=== PATIENT | female | born 1975 ===

== ENCOUNTER 2019-12-20 16:45 | Inpatient (IN) ==
[2019-12-20] MEDS ORDERED: SODIUM CHLORIDE 0.9% 1,000 ML IV STA (17:40)
[2019-12-20 17:43] LABS: Basophils % 0.5 % (0.0-0.8); Eosinophils # 0.1 10*3/uL (0.0-0.87); Eosinophils % 3.1 % (0.00-10.9); Hematocrit 33.7 VOL% (35.7-47.0); Hemoglobin 10.1 GM/DL (12.0-16.0); Immature Granulocytes Absolute 0.04 #; Lymphocytes % 27.3 % (21.3-54.2); Mean Corpuscular Volume 82.8 FL (87-102); Mean Platelet Volume 11.1 FL (9.6-12.0); Monocytes % 8.4 % (1.7-12.7); Neutrophils % 59.7 % (38.7-73.9); Platelet Count 194 T/CUMM (130-400); Red Blood Count 4.07 MC/CUMM (3.8-5.5); Red Cell Distribution Width 22.6 % (9.3-17.3); White Blood Count 3.8 T/CUMM (4-12)
[2019-12-20 17:52] LABS: INR 1.1; PT Patient Result 11.5 SECS (9.8-11.9); Partial Thromboplastin Time 28.2 SECS (23.9-33.8)
[2019-12-20 17:55] LABS: Alanine Aminotransferase 60 U/L (13-56); Albumin 2.7 G/DL (3.4-5.0); Alkaline Phosphatase 102 U/L (45-117); Aspartate Amino Transferase 89 U/L (0-37); Blood Urea Nitrogen 11 MG/DL (7-18); Calcium 8.7 MG/DL (8.5-10.1); Estimated Glom Filtration Rate 91 ML/MIN; Glucose 379 MG/DL (74-106); Osmolality,Calculated 282.2 MOS/KG (273-304); Total Protein 8.5 G/DL (6.4-8.3)
[2019-12-20] MEDS ORDERED: KETOROLAC 30 MG/1 ML VIAL IV STA (18:03)
[2019-12-20] MEDS ORDERED: KETOROLAC 15 MG/1 ML VIAL ONE (18:04)
[2019-12-20 18:30] LABS: Anisocytosis Slight; Hypochromasia Slight; Microcytosis Slight; Polychromasia Few
[2019-12-20 18:31] LABS: Platelet Estimate Adequate
[2019-12-20 18:46] LABS: Apearance,Urine CLEAR (Clear); Bilirubin,Urine Negative (Negative); Blood, Urine Negative (Negative); Glucose,Urine (UA) >=500 mg/dL (Negative); Hyaline Casts,Urine 7 /LPF (0-3); Ketones,Urine Negative (Negative); Mucus,Urine Many /LPF (Occasional); Nitrite,Urine Negative (Negative); Protein,Urine 30 MG/DL; RBC,Urine 1 /HPF (0-4); Squamous Epithelial Cell,Urine Occasional /HPF (0-10); Urine Color Amber (Yellow); Urine Specific Gravity 1.037 (1.001-1.035); WBC,Urine 2 /HPF (0-6)
[2019-12-20] MEDS ORDERED: VANCOMYCIN INJ 1,000 MG in SODIUM CHLORIDE 0.9% 250 ML IV STA (18:54)
[2019-12-20] MEDS ORDERED: PIPERACILLIN/TAZOBACTAM 3,375 MG in SODIUM CHLORIDE 0.9% 100 ML IV STA (18:54)
[2019-12-20] MEDS ORDERED: DEXTROSE 50% 25 GM/50 ML VIAL IV PRN (19:41)
[2019-12-20] MEDS ORDERED: GLUCAGON 1 MG VIAL IM PRN ×2 (19:41)
[2019-12-20] MEDS: INSULIN LISPRO 100 UNIT/ML SUBCUT SCH (21:00)
[2019-12-20] MEDS ORDERED: DEXTROSE 10% 250 ML BAG IV PRN (21:05)
[2019-12-21] MEDS: MORPHINE 4 MG/1 ML VIAL IV PRN ×3 (03:20→21:45)
[2019-12-21] MEDS: SODIUM CHLORIDE 0.9% 1,000 ML IV SCH ×3 (03:25→22:43)
[2019-12-21] MEDS: PIPERACILLIN/TAZOBACTAM 3,375 MG in SODIUM CHLORIDE 0.9% 100 ML IV SCH ×3 (03:25→18:26)
[2019-12-21] MEDS ORDERED: KETAMINE 500 MG/10 ML VIAL ONE (07:30)
[2019-12-21] MEDS ORDERED: DEXMEDETOMIDINE 200 MCG/2 ML VIAL ONE (07:30)
[2019-12-21] MEDS: lisinopriL 5 MG TABLET PO SCH (08:20)
[2019-12-21] MEDS: PANTOPRAZOLE 40 MG TABLET PO SCH (08:20)
[2019-12-21] MEDS: INSULIN LISPRO 100 UNIT/ML SUBCUT SCH ×4 (08:25→22:42)
[2019-12-21] MEDS ORDERED: BUPIVACAINE MPF 0.25% 30 ML VIAL ONE (08:54)
[2019-12-21] MEDS ORDERED: LIDOCAINE 1% 20 ML VIAL ONE (08:54)
[2019-12-21] MEDS: VANCOMYCIN INJ 1,500 MG in SODIUM CHLORIDE 0.9% 500 ML IV SCH ×2 (10:34→21:39)
[2019-12-21 10:48] LABS: Basophils % 0.3 % (0.0-0.8); Eosinophils # 0.1 10*3/uL (0.0-0.87); Eosinophils % 3.6 % (0.00-10.9); Hematocrit 30.3 VOL% (35.7-47.0); Immature Granulocytes % 0.6 %; Immature Granulocytes Absolute 0.02 #; Lymphocytes # 0.9 10*3/uL (1.4-4.0); Lymphocytes % 28.2 % (21.3-54.2); Mean Corpuscular HGB Conc 29.7 GM/DL (32-36); Mean Corpuscular Volume 82.6 FL (87-102); Mean Platelet Volume 11.7 FL (9.6-12.0); Monocytes % 7.1 % (1.7-12.7); Neutrophils % 60.2 % (38.7-73.9); Platelet Count 158 T/CUMM (130-400); Red Blood Count 3.67 MC/CUMM (3.8-5.5); Red Cell Distribution Width 22.6 % (9.3-17.3); White Blood Count 3.1 T/CUMM (4-12)
[2019-12-21 11:09] LABS: Anisocytosis 2+
[2019-12-21 14:16] LABS: Calcium 8.2 MG/DL (8.5-10.1); Osmolality,Calculated 281.8 MOS/KG (273-304); Risk Ratio 4.19; VLDL CHOLESTEROL 33.6 MG/DL
[2019-12-22] MEDS: ONDANSETRON 4 MG/2 ML VIAL IV PRN ×2 (01:30→10:43)
[2019-12-22] MEDS: PIPERACILLIN/TAZOBACTAM 3,375 MG in SODIUM CHLORIDE 0.9% 100 ML IV SCH (01:52)
[2019-12-22] MEDS ORDERED: metFORMIN 500 MG TABLET PO SCH (09:00)
[2019-12-22] MEDS ORDERED: COENZYME Q10 100 MG CAPSULE PO SCH (09:00)
[2019-12-22] MEDS ORDERED: FERROUS SULFATE 325 MG TABLET PO SCH (09:00)
[2019-12-22] MEDS: INSULIN LISPRO 100 UNIT/ML SUBCUT SCH ×2 (10:41→12:47)
[2019-12-22] MEDS: SODIUM CHLORIDE 0.9% 1,000 ML IV SCH ×2 (10:42→12:37)
[2019-12-22] MEDS: lisinopriL 5 MG TABLET PO SCH (10:42)
[2019-12-22] MEDS: PANTOPRAZOLE 40 MG TABLET PO SCH (10:42)
[2019-12-22] MEDS: MORPHINE 4 MG/1 ML VIAL IV PRN (10:43)
[2019-12-22] MEDS: VANCOMYCIN INJ 1,500 MG in SODIUM CHLORIDE 0.9% 500 ML IV SCH (12:47)
[2019-12-22 14:24] VITALS: BP 134/78
[2019-12-22] MEDS ORDERED: CLINDAMYCIN 300 MG CAPSULE PO SCH (15:00)
[2019-12-22] MEDS ORDERED: ROSUVASTATIN 10 MG TABLET PO SCH (21:00)
[2019-12-22] MEDS ORDERED: INSULIN GLARGINE 100 UNIT/ML SUBCUT SCH (21:00)
== END 2019-12-22 13:30 | disposition home or self-care (01) | DRG 622 ==
LOC: EDUNIT# → EDBD → N.ED 16:45 → N.EDINP 19:41 → N.2W 12-21 02:50
PROVIDERS: ADMIT Internal Medicine; ATTEND Internal Medicine

== ENCOUNTER 2022-05-24 17:02 | Observation (INO) ==
[2022-05-24] MEDS ORDERED: SODIUM CHLORIDE 0.9% 1,000 ML IV PRN (17:33)
[2022-05-24] MEDS ORDERED: ONDANSETRON 4 MG/2 ML VIAL IV PRN (17:41)
[2022-05-24] MEDS ORDERED: DEXTROSE 10% 250 ML BAG IV PRN (17:41)
[2022-05-24] MEDS ORDERED: GLUCAGON 1 MG VIAL IM PRN (17:41)
[2022-05-24] MEDS ORDERED: NICOTINE 7 MG/24 HR PATCH TRANSDERM PRN (18:01)
[2022-05-24 18:33] LABS: Basophils % 0.3 % (0.0-0.8); Eosinophils # 0.1 10*3/uL (0.0-0.87); Eosinophils % 3.5 % (0.00-10.9); Hematocrit 25.1 VOL% (35.7-47.0); Hemoglobin 7.1 GM/DL (12.0-16.0); Immature Granulocytes % 0.3 %; Immature Granulocytes Absolute 0.01 #; Lymphocytes # 0.5 10*3/uL (1.4-4.0); Lymphocytes % 18.1 % (21.3-54.2); Mean Corpuscular HGB Conc 28.3 GM/DL (32-36); Mean Corpuscular Volume 74.7 FL (87-102); Mean Platelet Volume 10.6 FL (9.6-12.0); Monocytes # 0.2 10*3/uL (0.11-0.8); Monocytes % 8.3 % (1.7-12.7); Neutrophils % 69.5 % (38.7-73.9); Platelet Count 96 T/CUMM (130-400); Red Blood Count 3.36 MC/CUMM (3.8-5.5); Red Cell Distribution Width 20.1 % (9.3-17.3); White Blood Count 2.9 T/CUMM (4-12)
[2022-05-24 18:42] LABS: INR 1.1; PT Patient Result 11.7 SECS (10.1-12.1)
[2022-05-24 18:50] LABS: % Iron Saturation 3.8 % (18-50)
[2022-05-24 18:52] LABS: Urine Appearance Clear (Clear); Urine Color Yellow (Yellow)
[2022-05-24 18:53] LABS: Bilirubin,Urine Negative (Negative); Blood, Urine Negative (Negative); Glucose,Urine (UA) Negative (Negative); Ketones,Urine Negative (Negative); Nitrite,Urine Negative (Negative); Protein,Urine Negative (Negative); Urine Specific Gravity 1.025 (1.001-1.035)
[2022-05-24 18:54] LABS: Bilirubin,Total 0.5 MG/DL (0.20-1.00); Calcium 8.4 MG/DL (8.5-10.1); Osmolality,Calculated 278.7 MOS/KG (273-304); Potassium 3.6 MMOL/L (3.5-5.1); Total Protein 7.3 G/DL (6.4-8.2)
[2022-05-24 18:55] LABS: Bacteria,Urine Occasional /HPF (Few); Mucus,Urine Occasional /LPF (Occasional); RBC,Urine 1 /HPF (0-4); Squamous Epithelial Cell,Urine Few /HPF (0-10)
[2022-05-24 18:56] LABS: Folate 14.4 NG/ML (5.38-24.0)
[2022-05-24] MEDS: ACETAMINOPHEN 325 MG TABLET PO PRN (20:22)
[2022-05-24] MEDS: INSULIN LISPRO 100 UNIT/ML SUBCUT SCH (23:33)
[2022-05-25] MEDS ORDERED: diphenhydrAMINE 50 MG/1 ML VIAL IV ONE (03:51)
[2022-05-25 05:31] LABS: Osmolality,Calculated 281.7 MOS/KG (273-304); Potassium 3.6 MMOL/L (3.5-5.1)
[2022-05-25 05:36] LABS: Basophils % 0.2 % (0.0-0.8); Eosinophils % 0.9 % (0.00-10.9); Hematocrit 36.1 VOL% (35.7-47.0); Immature Granulocytes % 0.7 %; Immature Granulocytes Absolute 0.03 #; Lymphocytes # 0.8 10*3/uL (1.4-4.0); Lymphocytes % 18.3 % (21.3-54.2); Mean Corpuscular HGB Conc 28.8 GM/DL (32-36); Mean Corpuscular Volume 76.2 FL (87-102); Monocytes # 0.4 10*3/uL (0.11-0.8); Monocytes % 7.6 % (1.7-12.7); NRBC # 0.02 10*3/uL; Neutrophils % 72.3 % (38.7-73.9); Red Blood Count 4.74 MC/CUMM (3.8-5.5); White Blood Count 4.6 T/CUMM (4-12)
[2022-05-25 05:40] LABS: Hemoglobin 10.4 GM/DL (12.0-16.0)
[2022-05-25 05:41] LABS: Platelet Count 126 T/CUMM (130-400)
[2022-05-25] MEDS: INSULIN LISPRO 100 UNIT/ML SUBCUT SCH ×2 (08:04→12:23)
[2022-05-25] MEDS: ACETAMINOPHEN 325 MG TABLET PO PRN (08:05)
[2022-05-25] MEDS ORDERED: FERRIC GLUCONATE COMPLEX 125 MG in SODIUM CHLORIDE 0.9% 100 ML IV ONE (10:00)
[2022-05-25 11:48] VITALS: BP 99/56
== END 2022-05-25 13:50 | disposition home or self-care (01) ==
LOC: EDBD → EDUNIT# → N.ED 17:02 → N.EDINP 17:02 → N.2W 18:21
PROVIDERS: ADMIT Internal Medicine; ATTEND Internal Medicine